=== PATIENT | male | born 1940 | race Caucasian/White ===

== ENCOUNTER 2023-12-29 10:51 | Outpatient (AMB) | payer MEDICARE, SELFPAY ==
[2023-12-29 11:01] VITALS: BP 118/60; PULSE 72; O2SAT 97; BMI 37.5
--- NOTE | 2023-12-29 11:01 | MHC.OFFVIS ---
Vital Signs 12/29/23 11:01 Height 5 ft 9 in Weight 254 lb BMI 37.5 BP 118/60 Blood Pressure Location Lt brachial Position Sitting Pulse 72 Pulse Source Pulse Oximeter Pulse Oximetry (%) 97 Oxygen Delivery Method Room Air Intake Visit Reasons: Arthralgia//RECORDS RECEIVED Intake Note: Patient presents today for arthralgia. He states it's in his right leg. He is having right hip operation in 03/01/2024. Accompanied by: Spouse Allergies No Known Allergies Allergy (Verified 12/29/23 11:07) [facility] HPI Arthralgia//RECORDS RECEIVED: Details: He continues to experience right hip pain. He has difficulty ambulating. The experiences pain at night when he sleeps. Pain radiates down his right leg. He has a [facility] surgeons who have treated him with right hip joint intra-articular cortisone injection without benefit. He is currently planning surgery in February for hip replacement. Prior to cortisone injection he had 2 months of physical therapy that were ineffective. He uses Tylenol 1000 mg b.i.d. without benefit. His school bus driver/custodian has advised him not to use any NSAIDs. He has history of stent placement. Rheumatology record: History of osteoarthritis in the left knee treated with cortisone injection 04/28/2017, 07/29/2018, 11/28/2018 and 03/31/2019. Completed physical therapy and exercises regularly. Uses Tylenol as needed for pain. He also has history of osteoarthritis of the right shoulder, cervical spondylosis, right trochanteric bursitis and right hip osteoarthritis. [facility] Surgical History (Updated 12/29/23 @ 11:05 by Paloma Nguyen [facility]) History of intravascular stent placement Review of Systems Const All systems reviewed & are unremarkable except as noted in HPI and below Physical Exam Vital Signs: Last Vital Signs Pulse 72 12/29/23 11:01 BP 118/60 12/29/23 11:01 Pulse Ox 97 12/29/23 11:01 Oxygen Delivery Method Room Air 12/29/23 11:01 BMI result Body Mass Index 37.5 Office Procedures AMB Joint Injection/Aspiration Joint Injection/Aspiration Primary Site: other (Right trochanteric bursa) Prep: site was prepped using aseptic technique Injected: 40 mg of and 1% plain lidocaine (2mL) Procedure: The patient tolerated the procedure well Coding 03014 - Large joint Procedure code (CPT) selection complete Office Meds Kenalog 40 mg/mL suspension for injection Performing Provider: Adrian Gavin MD Performing Location: [facility] Administered by: Adrian Gavin MD on 12/29/23 23:19 Dose Route Admin Location Dispensed Lot Number Expiration Date [facility] [employer] 40 mg intrabursal Right trochanteric bursa 1 mL [id number] [employer] lidocaine (PF) 10 mg/mL (1 %) injection solution Performing Provider: Adrian Gavin MD Performing Location: [facility] Administered by: Adrian Gavin MD on 12/29/23 23:19 Dose Route Admin Location Dispensed Lot Number Expiration Date [facility] [employer] 20 mg Infiltration Right trochanteric bursa 2 mL [id number] [facility] Assessment & Plan Assessment & Plan (1) Trochanteric bursitis, right hip: Comment: Pain is uncontrolled. Failed PT and Tylenol 1000 mg b.i.d.. Code(s): M70.61 - Trochanteric bursitis, right hip Category: Medical Plan: Right trochanteric bursa cortisone injection was given this visit Return to clinic in 3 months Plan . Orders: Orders AMB Joint Injection/Aspiration Today M70.61 - Trochanteric bursitis, right hip Medications: New Kenalog (triamcinolone acetonide) 40 mg intrabursal ONCE 1 mL 0RF NS M70.61 - Trochanteric bursitis, right hip lidocaine (PF) 20 mg (2 mL) Infiltration ONCE 2 mL 0RF M70.61 - Trochanteric bursitis, right hip Coding Level of Care Code Est Pt Level 3 (45356) Complex EM visit Add On G2211 Diagnoses Trochanteric bursitis, right hip M70.61 CPT Codes Coding - 60672 Large joint: 64677 - Large joint ([id number])
== END 2023-12-29 11:53 | disposition home or self-care (01) ==
PROVIDERS: PCP Internal Medicine; Visit Provider Internal Medicine Rheumatology
DX: M70.61 Trochanteric bursitis, right hip (principal)
CPT/HCPCS: 20610; 99214

== ENCOUNTER → 2023-12-29 10:51 | Outpatient (BNVA) | payer MEDICARE, SELFPAY | PROVIDERS: PCP Internal Medicine; Visit Provider Internal Medicine Rheumatology | DX: M70.61 Trochanteric bursitis, right hip (principal) | CPT/HCPCS: 20610; 99212; J2003; J3300 ==

== ENCOUNTER 2024-03-30 08:24 | Outpatient (AMB) | payer MEDICARE, SELFPAY ==
--- OUTSIDE RECORDS SUMMARY | 2024-03-30 08:28 | XMS_ITS | Clinical Summary ---
Author Organization [facility] it Address [address] [place] [address] Care Team Providers Care Showroom Manager Name Role Phone Robert Ortiz MD Primary Care Provider [phone] Surgical History Surgery Date Site/Laterality Comments CARDIAC CATHETERIZATION PROCEDURE:CARDIAC CATHETERIZATION COLONOSCOPY PROCEDURE:COLONOSCOPY CHEILECTOMY 02/21/2022 Left PROCEDURE:CHEILECTOMY;COMMENT:Proce dure: LEFT -CORRECTION HALLUX RIGIDUS; Surgeon: Joel Schulz DPM; Location: [facility]; Service: Podiatry; Laterality: Left; Medical History Medical History Date Comments Coronary artery disease DX:Coron marko artery disease Social History Tobacco Use Types Packs/Day Years Used Date Smoking Tobacco: Never Smokeless Tobacco: Never Alcohol Use Standard Drinks/Week Comments Yes 4 (1 standard drink = 0.6 oz pur e alcohol) Sex and Gender Information Value Date Recorded Sex Assigned at Not on file Legal Sex Male 8:28 PM EST Gender Identity Not on file Sexual Orientation Not on file Obstetrics History Plan of Treatment Health Maintenance Due Date Last Done Comments DTaP,Tdap,and Td Vaccines (1 - Tdap) 1961 Pneumococcal Vaccine: 50+ Ye ars (1 of 1 - PCV) 1992 Zoster Vaccines (1 of 2) 1992 RSV Immunization Patients 60 + Years Old (1 - 1-dose 75+ series) 2017 Cholesterol Screening (Lipid Panel) 03/06/2023 Depression Screening 03/06/2023 Falls Risk Assessment 03/06/2023 Social Influencers of Health Screening 03/06/2023 COVID-19 Vaccine ( - 2023-2 5 season) 2023 Influenza Vaccine (#1) 2023 HIB Vaccines Aged Out No longer eligi ble based on patient's age to complete this topic HPV Vaccines Aged Out No longer eligi ble based on patient's age to complete this topic Hepatitis A Vaccines Aged Out No long er eligible based on patient's age to complete this topic Hepatitis B Vaccines Aged Out No long er eligible based on patient's age to complete this topic IPV Vaccines Aged Out No longer eligi ble based on patient's age to complete this topic MMR Vaccines Aged Out No longer eligi ble based on patient's age to complete this topic Meningococcal ACWY Vaccine Aged Out N o longer eligible based on patient's age to complete this topic Meningococcal B Vacine Aged Out No lo nger eligible based on patient's age to complete this topic RSV Immunization Patients Un hesham 20 months Aged Out No longer eligible b ased on patient's age to complete this topic Varicella Vaccines Aged Out No longer eligible based on patient's age to complete this topic Medical Devices Implanted Type Area Bungy Jump Master Device Identifier Shelf Expiration Date Model / Serial / Lot Implant Cartilage 8mm Ssynthetic [id number] Implanted:Qty: 1 on 02/21/2022 by Joel Schulz DPM Implants [employer] 09/04/[address] / / [id number] Care Teams Showroom Manager Relationship Specialty Start Date End Date Robert Ortiz MD [address] [place] [id number] PCP - General 02/21/22
--- OUTSIDE RECORDS SUMMARY | 2024-03-30 08:28 | XMS_ITS | Clinical Summary ---
Author Organization [facility] Address [address] [place] [address] Care Team Providers Care Production Maintenance Mechanic Name Role Phone Robert Ortiz MD Primary Care Provider [phone] Allergies No known active allergies Medications Medication Sig Dispensed Refills Start Date End Date Status isosorbide mononitrate (IMDUR) 60 MG 24 hr tablet Take 1 tablet (60 mg total) by mouth daily. 0 Active isosorbide mononitrate (IMDUR) 30 MG 24 hr tablet Take 1 tablet (30 mg total) by mouth daily. 0 Active metoprolol succinate (TOPROL-XL) 24 hr tablet 25 mg Take 0.5 tablets (12.5 mg total) by mouth daily. 0 Active aspirin EC 81 MG tablet Take 1 tablet (81 mg total) by mouth daily. 0 Active rosuvastatin (CRESTOR) tablet 20 mg Take 1 tablet (20 mg total) by mouth daily. 0 Active vitamin D3 (cholecalciferol) 10 MCG (400 UNIT) tablet Take 1 tablet (10 mcg total) by mouth daily. 0 Active vitamin B-12 (CYANOCOBALAMIN) 100 MCG tablet Take 0.5 tablets (50 mcg total) by mouth daily. 0 Active CALCIUM PO Take 1 tablet by mouth daily. 0 Active nitroglycerin (NITROSTAT) 0.[address] 1 tablet (0.4 mg total) under the tongue every 5 (five) minutes as needed for chest pain. 0 Active Social History Tobacco Use Types Packs/Day Years Used Date Smoking Tobacco: Never Smokeless Tobacco: Never Tobacco Cessation:Counseling Given: Not Answered Alcohol Use Standard Drinks/Week Comments Yes 4 (1 standard drink = 0.6 oz pur e alcohol) Sex and Gender Information Value Date Recorded Sex Assigned at Male 02/21/2022 6:49 AM EST Gender Identity Not on file Sexual Orientation Not on file Job Start Date Occupation Industry Not on file Not on file Not on file Last Filed Vital Signs Vital Sign Reading Time Taken Comments Blood Pressure 135/74 02/21/2022 9:54 AM EST Pulse 53 02/21/2022 10:00 AM EST Temperature 36.3 ??C (97.3 ??F) 02/21/2022 9:54 AM ES T Respiratory Rate 13 02/21/2022 10:0 0 AM EST Oxygen Saturation 96% 02/21/2022 9:54 AM EST Inhaled Oxygen Concentration - - Weight 108.9 kg (240 lb 1.3 oz) 02/21/2022 7:06 AM EST Height 170.2 cm (5' 7 ) 02/21/2022 7:06 AM EST Body Mass Index 37.6 02/21/2022 7:06 AM EST Plan of Treatment Not on file Medical Devices Implanted Type Area Dispatch Supervisor Device Identifier Shelf Expiration Date Model / Serial / Lot Implant Cartilage 8mm Ssynthetic [facility]-[id number] 4 - [id number] Implanted:Qty: 1 on 02/21/2022 by Joel Schulz DPM at [facility] Location [employer]iscellaneous [employer] 09/04/[address] / / [id number] Care Teams Production Maintenance Mechanic Relationship Specialty Start Date End Date Robert Ortiz MD [address] [place] [address] [place] [id number] PCP - General Internal Medicine 02/21/22
--- NOTE | 2024-03-30 08:42 | MHC.OFFVIS ---
Vital Signs 03/30/24 08:47 Height 5 ft 9 in Weight 253 lb 4 oz BMI 37.4 BP 118/62 Blood Pressure Location Rt brachial Position Sitting Pulse 77 Pulse Source Pulse Oximeter Pulse Oximetry (%) 98 Oxygen Delivery Method Room Air Intake Visit Reasons: Follow Up 3mo Intake Note: Pt presents today Trochanteric bursitis, right hip. Surgical Scrub Technologist Required: No Accompanied by: Spouse Allergies No Known Allergies Allergy (Verified 12/29/23 11:07) HPI HPI Follow Up 3mo: Details: He had relief with right trochanteric bursa cortisone injection. He is able to sleep at night. He still had functional difficulty going upstairs and proceeded with hip replacement. He had right hip replacement last month. He is going to physical therapy twice a week. [facility] Surgical History History of intravascular stent placement Physical Exam Vital Signs: Last Vital Signs Pulse 77 03/30/24 08:47 BP 118/62 03/30/24 08:47 Pulse Ox 98 03/30/24 08:47 Oxygen Delivery Method Room Air 03/30/24 08:47 BMI result Body Mass Index 37.4 Const Other: General: Comfortable Skin: No lesions seen MSK: No tenderness of trochanteric bursa found. Limited range of motion of right hip due to recent hip replacement. Assessment & Plan Assessment & Plan (1) Trochanteric bursitis, right hip: Comment: Pain has resolved with cortisone injection. Previously failed PT and Tylenol. He recently had right hip replacement and is recovering. Code(s): M70.61 - Trochanteric bursitis, right hip Category: Medical Plan: Return to clinic PRN Coding Level of Care Code Est Pt Level 3 (74842) Complex EM visit Add On G2211 Diagnoses Trochanteric bursitis, right hip M70.61
[2024-03-30 08:47] VITALS: BP 118/62; PULSE 77; O2SAT 98; BMI 37.4
== END 2024-03-30 09:16 | disposition home or self-care (01) ==
PROVIDERS: PCP Internal Medicine; Visit Provider Internal Medicine Rheumatology
DX: M70.61 Trochanteric bursitis, right hip (principal)
CPT/HCPCS: 99213; G2211

== ENCOUNTER → 2024-03-30 08:24 | Outpatient (BNVA) | payer MEDICARE, SELFPAY | PROVIDERS: PCP Internal Medicine; Visit Provider Internal Medicine Rheumatology | DX: M70.61 Trochanteric bursitis, right hip (principal); Z96.641 Presence of right artificial hip joint | CPT/HCPCS: 99212 ==